=== PATIENT | female | born 1955 | race Caucasian/White ===

== ENCOUNTER 2017-02-10 17:19 | Emergency (ER) | payer BC, OTHER ==
[~2017-02-10] VITALS: Ht 147.3 cm; Wt 64.0 kg
[~2017-02-10 17:19] MED LIST: METO-336 PO; SIMV80TA PO
[2017-02-10 18:11] VITALS: Ht 147.3 cm; Wt 64.0 kg
[2017-02-10] MEDS ORDERED: morphine 4 MG/ML VIAL IV STA (20:30)
[2017-02-10] MEDS ORDERED: ONDANSETRON 4 MG INJ IV STA (20:30)
--- NOTE | 2017-02-10 20:37 | ERA ---
ER Documentation Chief Complaint Date/Time DATE: 02/10/17 TIME: 20:32 Chief Complaint LEFT SIDED FLANK & BILATERAL OVARY PAIN, DENIES DYSURIA/HEMATURIA HPI 61-year-old female presenting with the chief complaints of bilateral flank pain 2 days. Patient with PCP who suggested she come to the ER for further evaluation. Patient has a history of hyperlipidemia, hypertension, anxiety and palpitations. Denies headache, chest pain, shortness of breath, nausea, vomiting, dysuria, hematuria, vaginal discharge. Patient has not taken any medications to relieve the symptoms. Patient had similar symptoms 1 month ago that was diagnosed as UTI and relieved with 10 days of ciprofloxacin. ROS All systems reviewed and are negative except as per history of present illness. Medications Home Meds Active Scripts Phenazopyridine Hcl* (Pyridium*) 100 Mg Tab, 100 MG PO TID Y for URINARY PAIN, # 8 TAB Prov:CLAUDIO WRIGHT PA-C 02/10/17 Nitrofurantoin Monohyd Macrocr* (Macrobid*) 100 Mg Capsr, 100 MG PO BID for 14 Days, CAP Prov:CLAUDIO WRIGHT PA-C 02/10/17 Reported Medications Metoprolol Succinate* (Toprol XL*) 100 Mg Tab.sr.24h, 100 MG PO BID 01/21/11 Simvastatin* (Zocor*) 80 Mg Tablet, 80 MG PO QHS 01/21/11 Allergies Allergies: Coded Allergies: No Known Allergies (Verified Allergy, 01/21/11) PMhx/Soc History of Surgery: No Anesthesia Reaction: No Hx Neurological Disorder: No Hx Respiratory Disorders: No Hx Cardiac Disorders: Yes (HTN) Hx Psychiatric Problems: No Hx Miscellaneous Medical Probl: Yes (Dyslipidemia) Hx Alcohol Use: No Hx Substance Use: No Hx Tobacco Use: No Smoking Status: Never smoker Physical Exam Vitals Vital Signs Date Time Temp Pulse Resp B/P Pulse Ox O2 Delivery O2 Flow Rate FiO2 02/10/17 18:11 99.4 60 18 188/90 98 Physical Exam Const: Overweight 61-year-old female sitting in the bed and no acute distress. Abd: Mild suprapubic tenderness. Soft, non tender, non distended. No guarding, masses. Normal bowel sounds. No McBurney's point tenderness. Back: No midline, flank or CVA tenderness Head: Normocephalic, Atraumatic. Eyes: Non-injected; No scleral erythema, discharge or foreign body. Ears: Normal External Ears, EACs clear, TM normal bilaterally without erythema. Nose: Normal external nose; no discharge, septal deviation, or sinus tenderness. Neck: No cervical lymphadenopathy, masses or goiter palpated. Trachea midline. Supple ~ No meningismus. Pulm: No dyspnea, stridor, tripoding or drooling. Good air movement. Clear to auscultation bilaterally. Cardio: Regular rate and rhythm; No murmurs, gallops or rubs auscultated. No JVD grossly observed. Radial and posterior tibial pulses 2+ bilaterally. Capillary refill less than 2 seconds. MS: Normal motor strength, normal tone. Skin: No petechiae or rashes. No ulcer, induration, jaundice. Good turgor. . Ext: No cyanosis, edema or palpable cord. Normal movement of all extremities grossly observed. Neur: Awake, alert and oriented x3. Neurovascularly intact bilaterally. Psych: Normal Mood and Affect. Result Diagram: 02/10/17205702/10/172057 Results 24 hrs Laboratory Tests Test 02/10/17 20:40 02/10/17 20:58 Urine Color STRAW Urine Clarity CLEAR Urine pH 6.0 Urine Specific Robert 1.009 Urine Ketones NEGATIVEmg/dL Urine Nitrite NEGATIVEmg/dL Urine Bilirubin NEGATIVEmg/dL Urine Urobilinogen NEGATIVEmg/dL Urine Leukocyte Esterase 2+Estrella/ul Urine Microscopic RBC 1/HPF Urine Microscopic WBC 6/HPF Urine Hemoglobin 1+mg/dL Urine Glucose NEGATIVEmg/dL Urine Total Protein NEGATIVEmg/dl White Blood Count 7.010^3/ul Red Blood Count 4.8110^6/ul Hemoglobin 14.3g/dl Hematocrit 43.4% Mean Corpuscular Volume 90.2fl Mean Corpuscular Hemoglobin 29.7pg Mean Corpuscular Hemoglobin Concent 32.9g/dl Red Cell Distribution Width 12.4% Platelet Count 93007^3/UL Mean Platelet Volume 11.0fl Neutrophils % 43.2% Lymphocytes % 47.6% Monocytes % 6.1% Eosinophils % 2.4% Basophils % 0.6% Nucleated Red Blood Cells % 0.0/100WBC Neutrophils # 3.010^3/ul Lymphocytes # 3.310^3/ul Monocytes # 0.410^3/ul Eosinophils # 0.210^3/ul Basophils # 0.010^3/ul Nucleated Red Blood Cells # 0.010^3/ul Prothrombin Time 13.8Sec Prothrombin Time Ratio 1.1 INR International Normalized Ratio 1.06 Activated Partial Thromboplast Time 29.7Sec Sodium Level 144mmol/L Potassium Level 4.0mmol/L Chloride Level 107mmol/L Carbon Dioxide Level 26mmol/L Anion Gap 15 Blood Urea Nitrogen 15mg/dl Creatinine 0.74mg/dl Glucose Level 94mg/dl Calcium Level 9.4mg/dl Total Bilirubin 0.6mg/dl Direct Bilirubin 0.00mg/dl Indirect Bilirubin 0.6mg/dl Aspartate Amino Transf (AST/SGOT) 29IU/L Alanine Aminotransferase (ALT/SGPT) 43IU/L Alkaline Phosphatase 72IU/L Total Protein 8.4g/dl Albumin 4.6g/dl Globulin 3.80g/dl Albumin/Globulin Ratio 1.21 Lipase 86U/L Current Medications Medications (Trade) Dose Ordered Sig/Bambi Route PRN Reason Start Time Stop Time Status Last Admin Dose Admin Morphine Sulfate (morphine) 4 mg ONCE STAT IV 02/10/17 20:30 02/10/17 20:32 DC Ondansetron HCl (Zofran Inj) 4 mg ONCE STAT IV 02/10/17 20:30 02/10/17 20:32 DC Procedures/MDM 61-year-old female presenting with a chief complaints of bilateral flank pain and showing mild suprapubic tenderness on physical examination with no abdominal or CVA tenderness. Patient was diagnosed with urinary tract infection and treated with Cipro 10 days 1 month ago. Patient denies dysuria. CT read by the radiologist is unremarkable. Urine negative. Urinalysis reveals 2+ loops, it was white blood cells. Reviewed the case with my attending Dr. Sanchez who states that since there is recent antibiotic use the most appropriate treatment is with Macrobid 14 days. Patient will be prescribed Pyridium for discomfort. I have little suspicion for pyelonephritis , acute abdomen, PID or other acute pathologies. Most likely diagnosis is lower urinary tract infection with unspecified site. I have spoke with the patient regarding their condition and future management. They have verbally responded that they understand their status and treatment plan. The patients vitals are stable, and their current condition is appropriate for discharge. The patient will be given discharge instructions with return precautions. Departure Diagnosis: Primary Impression: UTI (urinary tract infection) Qualified Code: N39.0 - Urinary tract infection with hematuria, site unspecified Condition: Stable Additional Instructions: Follow up with your PCP within the next 1-3 days for a more thorough evaluation and a possible referral to a specialist. Return the the emergency department immediately if symptoms worsen or change. If you have any questions regarding medications, ask your pharmacist or us before you leave. If any adverse reactions occur while taking your medications, discontinue the treatment and return to the emergency department immediately. Take your medications as directed, and complete the entire course of treatment. CLAUDIO WRIGHT PA-C Feb 10, 2017 20:36 CLAUDIO WRIGHT PA-C Feb 10, 2017 20:36
[2017-02-10 20:59] LABS: ADD UMIC YES; UR ASCORBIC ACID NEGATIVE (NEGATIVE); UR BILIRUBIN (Dip) NEGATIVE (NEGATIVE); UR BLOOD (Dip) 1+ mg/dL (NEGATIVE); UR CLARITY CLEAR (CLEAR); UR COLOR STRAW (YELLOW); UR GLUCOSE (Dip) NEGATIVE (NEGATIVE); UR KETONES (Dip) NEGATIVE (NEGATIVE); UR LEUKOCYTE ESTERASE (Dip) 2+ Leu/ul (NEGATIVE); UR NITRITE (Dip) NEGATIVE (NEGATIVE); UR RBC 1 /HPF (0-5); UR SPECIFIC GRAVITY (Dip) 1.009 (1.003-1.030); UR TOTAL PROTEIN (Dip) NEGATIVE (NEGATIVE); UR UROBILINOGEN (Dip) NEGATIVE (NEGATIVE)
[2017-02-10 21:23] LABS: BASOPHILS % 0.6 % (0.0-2.0); EOSINOPHILS # 0.2 10^3/ul (0.0-0.5); EOSINOPHILS % 2.4 % (0.0-7.0); HEMATOCRIT 43.4 % (37.0-47.0); HEMOGLOBIN 14.3 g/dl (12.0-16.0); LYMPHOCYTES # 3.3 10^3/ul (0.8-2.9); LYMPHOCYTES % 47.6 % (15.0-51.0); MEAN CORPUSCULAR HEMOGLOBIN 29.7 pg (29.0-33.0); MEAN CORPUSCULAR HGB CONC 32.9 g/dl (32.0-37.0); MEAN CORPUSCULAR VOLUME 90.2 fl (82.0-101.0); MONOCYTE # 0.4 10^3/ul (0.3-0.9); MONOCYTES % 6.1 % (0.0-11.0); NEUTROPHILS % 43.2 % (39.0-77.0); PLATELET COUNT 241 10^3/UL (140-415); RED BLOOD COUNT 4.81 10^6/ul (4.20-5.40); RED CELL DISTRIBUTION WIDTH 12.4 % (11.5-14.5)
[2017-02-10 21:36] LABS: INR 1.06; PROTIME 13.8 Sec (12.2-14.2); PT RATIO 1.1
[2017-02-10 21:37] LABS: PARTIAL THROMBOPLASTIN TIME 29.7 Sec (25.0-35.0)
[2017-02-10 21:41] LABS: ALBUMIN 4.6 g/dl (3.3-4.9); ALBUMIN/GLOBULIN RATIO 1.21; BILIRUBIN,INDIRECT 0.6 mg/dl (0-1.1); BILIRUBIN,TOTAL 0.6 mg/dl (0.2-1.3); CALCIUM 9.4 mg/dl (8.4-10.2); CREATININE 0.74 mg/dl (0.44-1.00); TOTAL PROTEIN 8.4 g/dl (6.1-8.1)
--- NOTE | 2017-02-10 22:10 | RADRPT ---
PROCEDURE: CT Abdomen and Pelvis without contrast. CLINICAL INDICATION: Abdominal pelvic pain. TECHNIQUE: CT scan of the abdomen and pelvis without contrast was performed on a multidetector hig h-resolution CT scanner. The patient was scanned without intravenous contrast. Coronal and sagittal reformatted images were obtained from the axial source images. Images were reviewed on a high-resol [employer] PACS workstation. The total exam CTDI equals 8.74 mGy and the total exam DLP equals 459.05 mGy -cm. One or more of the following dose reduction techniques were used: - Automated exposure control. - Adjustment of the mA and/or kV according to patient size. - Use of iterative reconstruction technique. COMPARISON: None. FINDINGS: CT abdomen: The lung bases are remarkable for minor dependent basilar subsegmental atelectasis. The heart size is normal, without pericardial thickening or effusion. There is a small retrocardiac hiatal hernia. The liver is normal in size and density without focal mass or intrahepatic biliary dilatation. The spleen is normal in size and homogeneous in density. The stomach is partially collapsed, but is gr ossly unremarkable. The pancreas as visualized is normal. The gallbladder and biliary tree are unr emarkable and there is no evidence for biliary dilatation. The adrenal glands are symmetric and nor mal. The kidneys are symmetrically unremarkable as well. No renal calculus or obstructive uropathy or mass lesion is seen. The aorta is of normal caliber. Aortic vascular calcifications are present. There is no retroperit goncalves lymphadenopathy. The malka hepatis region is clear. The bowel and mesentery, as visualized, are equally unremarkable. CT pelvis: The small bowel loops situated within the pelvis are unremarkable. The appendix is visualized and is normal. The pelvic organs are remarkable for an enlarged lobulated uterus. The pelvic sidewalls a nd inguinal regions are clear. The sigmoid colon and rectum are unremarkable. No mass or adenopath y is seen. No free fluid is present. No acute inflammation is identified at this time. The surrounding osseous structures are remarkable for mild degenerative enthesopathy of the spine. No osteolytic or osteoblastic lesion is detected. IMPRESSION: 1. Unremarkable CT scan of the abdomen and pelvis. 2. No mass, lymphadenopathy, or focal acute inflammatory process 3. Scattered benign chronic senescent changes. RPTAT: HMJB .Freddy Grande MD, MD Date Time Electronically viewed and signed by .Freddy Grande MD, MD on 02/10/2017 22:10 .B/
[2017-02-10] MEDS ORDERED: NITR-58 PO (22:20)
[2017-02-10] MEDS ORDERED: PHEN-537 PO (22:20)
[2017-02-10 22:30] VITALS: BP 178/94; RESP 20
== END 2017-02-10 22:30 | disposition home or self-care (01) ==
LOC: FTE 17:19
DX: N39.0 Urinary tract infection, site not specified (principal); I10 Essential (primary) hypertension
CPT/HCPCS: 36415; 74176; 80053; 81001; 83690; 85025; 85610; 85730; 87086

== ENCOUNTER 2017-11-14 16:26 | Observation (INO) | END 2017-11-16 19:11 | disposition home health service (06) ==

== ENCOUNTER 2018-10-14 01:38 | Inpatient (IN) | payer OTHER ==
[~2018-10-14] VITALS: Ht 162.6 cm; Wt 57.2 kg
[2018-10-14] VITALS (7 sets, daily range): BP systolic 141–166; BP diastolic 71–88; PULSE 61–98; RESP 18–22; Ht 162.6 cm; Wt 57.2 kg
[~2018-10-14 01:38] MED LIST changes: +ALEN70TA5 PO; +AMIO200T4 PO; +APIX5TAB PO; +ATOR20TA38 PO; +ERGO2000 PO; +LORA0.5T PO; +LOSA50TA14 PO; -METO-336 PO; +PARO-2 PO; -SIMV80TA PO
[2018-10-14] MEDS ORDERED: HYDR12.58 PO (04:32)
[2018-10-14] MEDS ORDERED: LEVO50TA7 PO (04:32)
--- NOTE | 2018-10-14 04:56 | ERD ---
ER Documentation Chief Complaint Chief Complaint HTN X'S 1 DAY HPI Very pleasant 63-year-old female history of atrial fibrillation status post ablation therapy who presents to the emergency room with elevated blood pressure. The patient states that she went to dinner and had some steak and may be some salty food. She got home and felt that her blood pressure was high. She started to check her blood pressure multiple times and to continue to elevate up into the 200s. Patient denied any headache. She states that she had a cold sensation over the front of her chest but this was transient. She denied any chest pressure, pleuritic pain or migratory pain. The patient states that she is feeling somewhat better currently. Patient denies any fevers or chills ROS All systems reviewed and are negative except as per history of present illness. Medications Home Meds Active Scripts Amiodarone Hcl* (Amiodarone Hcl*) 200 Mg Tablet, 200 MG PO DAILY for 30 Days, #30 TAB 2 Refills Prov:WINDY RAMOS MD 11/16/17 Reported Medications Levothyroxine Sodium* (Levothyroxine Sodium*) 50 Mcg Tablet, 50 MCG PO QAM 10/14/18 Hydrochlorothiazide* (Hydrochlorothiazide*) 12.5 Mg Tablet, 121.5 MG PO DAILY for 30 Days, #30 10/14/18 Ergocalciferol (Vitamin D2) (VITAMIN D2) 2,000 Unit Tablet, 2000 UNIT PO DAILY, TAB 11/14/17 Atorvastatin Calcium* (Atorvastatin Calcium*) 20 Mg Tablet, 20 MG PO QHS, #30 TAB 11/14/17 Losartan Potassium* (Losartan Potassium*) 50 Mg Tablet, 50 MG PO DAILY, TAB 11/14/17 Alendronate Sodium* (Fosamax*) 70 Mg Tablet, 70 MG PO EVERY WEDNESDAY, #4 TAB 11/14/17 Apixaban* (Eliquis*) 5 Mg Tablet, 5 MG PO BID, TAB 11/14/17 Discontinued Reported Medications Paroxetine Hcl* (Paxil*) 20 Mg Tablet, 20 MG PO DAILY, TAB 11/14/17 Lorazepam* (Lorazepam*) 0.5 Mg Tablet, 0.5 MG PO BID PRN for ANXIETY, TAB 11/14/17 Allergies Allergies: Coded Allergies: No Known Allergies (Unverified Allergy, Unknown, 10/14/18) PMhx/Soc History of Surgery: No Anesthesia Reaction: No Hx Neurological Disorder: No Hx Respiratory Disorders: No Hx Cardiac Disorders: Yes (htn, afib) Hx Psychiatric Problems: Yes (Anxiety) Hx Miscellaneous Medical Probl: Yes (Hyperlipidemia) Hx Alcohol Use: No Hx Substance Use: No Hx Tobacco Use: No Smoking Status: Never smoker FmHx Family History: No diabetes Physical Exam Vitals Vital Signs Date Temp Pulse Resp B/P (MAP) Pulse Ox O2 O2 Flow FiO2 Time Delivery Rate 10/14/18 64 16 174/88 98 Room Air 04:40 (116) 10/14/18 66 16 196/86 98 Room Air 03:38 (122) 10/14/18 Nasal 2 03:23 Cannula 10/14/18 98.3 76 18 236/104 99 01:42 (148) Physical Exam General: Well developed, well nourished, no acute distress Head: Normocephalic, atraumatic. Eyes: Pupils equally reactive, EOM intact ENT: Moist mucous membranes Neck: Supple, no lymphadenopathy Respiratory: Lungs clear bilaterally, no distress Cardiovascular: RRR, no murmurs, rubs, or gallops Abdominal: Soft, non-tender, non-distended, no peritoneal signs : Deferred MSK: No edema, no unilateral swelling, 5/5 strength Neurologic: Alert and oriented, moving all extremities, normal speech, no focal weakness, no cerebellar signs Skin: No rash Psych: Normal mood Result Diagram: 10/14/18 0321 10/14/18 0321 Results 24 hrs Laboratory Tests Test 10/14/18 03:21 White Blood Count 9.3 10^3/ul Red Blood Count 4.58 10^6/ul Hemoglobin 13.4 g/dl Hematocrit 41.5 % Mean Corpuscular Volume 90.6 fl Mean Corpuscular Hemoglobin 29.3 pg Mean Corpuscular Hemoglobin Concent 32.3 g/dl Red Cell Distribution Width 11.9 % Platelet Count 257 10^3/UL Mean Platelet Volume 9.9 fl Immature Granulocytes % 0.300 % Neutrophils % 83.2 % Lymphocytes % 12.3 % Monocytes % 3.6 % Eosinophils % 0.3 % Basophils % 0.3 % Nucleated Red Blood Cells % 0.0 /100WBC Immature Granulocytes # 0.030 10^3/ul Neutrophils # 7.7 10^3/ul Lymphocytes # 1.2 10^3/ul Monocytes # 0.3 10^3/ul Eosinophils # 0.0 10^3/ul Basophils # 0.0 10^3/ul Nucleated Red Blood Cells # 0.0 10^3/ul Prothrombin Time 15.1 Sec Prothrombin Time Ratio 1.2 INR International Normalized Ratio 1.18 Activated Partial Thromboplast Time 37.7 Sec Sodium Level 139 mmol/L Potassium Level 3.8 mmol/L Chloride Level 101 mmol/L Carbon Dioxide Level 28 mmol/L Anion Gap 10 Blood Urea Nitrogen 19 mg/dl Creatinine 0.73 mg/dl Est Glomerular Filtrat Rate mL/min > 60 mL/min Glucose Level 123 mg/dl Calcium Level 9.4 mg/dl Troponin I 0.013 ng/ml Procedures/MDM EKG, MONITORS, & DIAGNOSTIC IMAGING: EKG: I reviewed and interpreted a 12-lead EKG. Rhythm: Normal sinus rhythm ST Changes: No contiguous ST segment elevations T waves: No contiguous T wave inversions Impression: No evidence of acute cardiac ischemia Repeat EKG: EKG: I reviewed and interpreted a 12-lead EKG. Rhythm: Normal sinus rhythm ST Changes: No contiguous ST segment elevations T waves: No contiguous T wave inversions Impression: No evidence of acute cardiac ischemia Chest x-ray: I reviewed and interpreted a 1 view of the chest Mediastinum: No enlargement Cardiac silhouette: No cardiomegaly Airspace: Clear lung price bilaterally without evidence of pneumothorax Bones: No evidence of fracture PROCEDURES: None LAB INTERPRETATION: * Initial troponin negative but indeterminate MEDICAL DECISION MAKING: The patient's history, physical exam and clinical presentation is consistent with asymptomatic hypertensive urgency. The patient described a cold sensation over her chest that seems very atypical and unlikely related to acute coronary syndrome. However given the patient's elevated blood pressure I do believe EKG and troponin would be appropriate. No signs of dissection. Based on the patient's clinical exam and history and risk factors, I have a much lower clinical concern for pulmonary embolism, acute aortic dissection, pneumothorax, pneumonia, cardiac tamponade HEART Score: 2 MACE Rate: <1.7% Shared Decision Making: We had a conversation regarding risk stratification, MACE rate, and the risks, benefits, alternatives of disposition planning options. Disposition planning: Serial enzymes and discharge ER COURSE: * Single trop negative but indeterminate so repeat pending around 6 am * Patient will be endorsed to oncoming provider. If repeat troponin is negative the patient can be safely discharged. * Blood pressure is dramatically improved with time. No significant intervention provided. CONSULTATION: None DISPOSITION PLAN: Pending repeat troponin but anticipate discharge Departure Diagnosis: Primary Impression: Hypertensive urgency Condition: Stable TAYLOR WARREN MD Oct 14, 2018 04:56
[2018-10-14] MEDS ORDERED: ASPIRIN 325 MG TAB PO ONE (07:00)
[2018-10-14] MEDS ORDERED: ACETAMINOPHEN 325 MG TAB PO PRN ×3 (09:00→10:00)
[2018-10-14] MEDS ORDERED: ONDANSETRON 4 MG INJ IV PRN ×3 (09:00→10:00)
[2018-10-14] MEDS ORDERED: MAGNESIUM HYDROXIDE 30ML CUP PO PRN (10:00)
[2018-10-14] MEDS ORDERED: HYDROCODONE/APAP (5/325) TAB PO PRN (10:00)
[2018-10-14] MEDS ORDERED: ACETAMINOPHEN 650 MG SUPP PR PRN (10:00)
[2018-10-14] MEDS ORDERED: morphine 2 MG INJ IV PRN (10:00)
[2018-10-14] MEDS ORDERED: NITROGLYCERIN (SL) 0.4 MG TAB SL PRN (10:00)
[2018-10-14] MEDS ORDERED: DOCUSATE SODIUM 100 MG CAP PO PRN (10:00)
[2018-10-14] MEDS ORDERED: BISACODYL 10 MG SUPP PR PRN (10:00)
[2018-10-14] MEDS ORDERED: NACL 0.9% 3 ML SYG IV SCH (10:00)
[2018-10-14] MEDS: FAMOTIDINE 20 MG INJ IV SCH ×2 (10:57→20:54)
[2018-10-14] MEDS: ENOXAPARIN 60 MG/0.6 ML SYG SC SCH ×2 (10:57→21:00)
[2018-10-14] MEDS ORDERED: ENOXAPARIN 100 MG/ML SYG SC SCH ×2 (11:00→21:00)
[2018-10-14] MEDS ORDERED: hydrALAzine (1 MG/ML) IV SYG IV PRN (13:30)
[2018-10-14] MEDS ORDERED: hydrALAzine 20 MG INJ IV PRN (14:00)
--- NOTE | 2018-10-14 16:02 | HP ---
Date/Time of Note Date/Time of Note DATE: 10/14/18 TIME: 15:56 Assessment/Plan VTE Prophylaxis Pharmacological prophylaxis: LMWH Lines/Catheters IV [facility]from [facility] Saline Lock Assessment/Plan Hospital Course Assessment and plan 1. Chest pain. Patient noted with elevated troponin. Start on therapeutic dose of Lovenox. Percussion Welding Machine Operator consulted. Start on high-dose statin. Continue on ASA. 2. Hypertension. Will adjust antihypertensive medications. Optimize for better BP control. 3. Hyperlipidemia. Follow-up on CHD panel. Continue on statin medication. 4. History of hypothyroidism. Continue on levothyroxine. 5. History of osteoarthritis. Patient resumed on Fosamax Discussed POC with Dr. Loyola Result Diagram: 10/14/18 0321 10/14/18 0321 Results 24hrs Laboratory Tests Test 10/14/18 03:21 10/14/18 05:56 10/14/18 10:46 White Blood Count 9.3 Red Blood Count 4.58 Hemoglobin 13.4 Hematocrit 41.5 Mean Corpuscular Volume 90.6 Mean Corpuscular Hemoglobin 29.3 Mean Corpuscular Hemoglobin Concent 32.3 Red Cell Distribution Width 11.9 Platelet Count 257 Mean Platelet Volume 9.9 Immature Granulocytes % 0.300 Neutrophils % 83.2 H Lymphocytes % 12.3 L Monocytes % 3.6 Eosinophils % 0.3 Basophils % 0.3 Nucleated Red Blood Cells % 0.0 Immature Granulocytes # 0.030 Neutrophils # 7.7 H Lymphocytes # 1.2 Monocytes # 0.3 Eosinophils # 0.0 Basophils # 0.0 Nucleated Red Blood Cells # 0.0 Prothrombin Time 15.1 H Prothrombin Time Ratio 1.2 INR International Normalized Ratio 1.18 Activated Partial Thromboplast Time 37.7 H Sodium Level 139 Potassium Level 3.8 Chloride Level 101 Carbon Dioxide Level 28 Anion Gap 10 Blood Urea Nitrogen 19 Creatinine 0.73 Est Glomerular Filtrat Rate mL/min > 60 Glucose Level 123 Calcium Level 9.4 Troponin I 0.013 0.147 *H 0.210 *H Creatine Kinase 101 Creatine Kinase Index 4.9 Creatinine Kinase MB (Mass) 4.93 H HPI/ROS Admit Date/Time Admit Date/Time Oct 14, 2018 at 08:54 Hx of Present Illness This is a 63-year-old female with reported past medical history of atrial fibrillation status post ablation, hyperlipidemia, hypertension, coronary artery disease, who came to the hospital due to reports of elevated blood pressure. Patient reported that last night her blood pressure systolically was in the 190s. She does report compliance with her medication. She then reported progressive pain that started from her chest that went to her left shoulder that was pressure-like in nature. She reported having more fatigue with walking. As such she went to the hospital for further evaluation. She did have initial troponin drawn which was 0.013. It did elevate to 0.147 and then to 0.210. She was provided with Lovenox 1 mg/kg. Chest x-ray done showed no acute cardia pulmonary process. She reports being in her normal state of health prior to these incidents. Blood pressure on arrival was seen to be as high as 236/104. Percussion Welding Machine Operator was notified. Currently during interview she is alert oriented. She denies any chest pain at present. We will evaluate her for the aformentiond issues. ROS 12 point review of systems obtained entirely negative except as mentioned in the history of present illness PMH/Family/Social Past Medical History Medical/surgical history 1. A. fib status post ablation 2. Hyperlipidemia 3 hypertension 4. Hypothyroid Medications Current Medications IV Flush (NS 3 ml) 3 ml PER PROTOCOL IV ; Start 10/14/18 at 10:00 Ondansetron HCl (Zofran Inj) 4 mg Q6H PRN IV NAUSEA/VOMITING; Start 10/14/18 at 10:00 Acetaminophen (Tylenol Tab) 650 mg Q6H PRN PO .PAIN 1-3 OR TEMP; Start 10/14/18 at 10:00 Acetaminophen (Tylenol Supp) 650 mg Q6H PRN [place] .PAIN 1-3 OR TEMP; Start 10/14/18 at 10:00 Acetaminophen/ Hydrocodone Bitart ([place] (5/325)) 1 tab Q6H PRN PO .MOD PAIN 4- 6; Start 10/14/18 at 10:00 Morphine Sulfate (morphine) 2 mg Q4H PRN IV .SEVERE PAIN 7-10; Start 10/14/18 at 10:00 Docusate Sodium (Colace) 100 mg Q12H PRN PO .CONSTIPATION; Start 10/14/18 at 10:00 Magnesium Hydroxide (Milk Of Mag) 30 ml DAILY PRN PO .CONSTIPATION; Start 10/14/18 at 10:00 Bisacodyl (Dulcolax Supp) 10 mg DAILY PRN [place] .CONSTIPATION; Start 10/14/18 at 10:00 Famotidine (Pepcid Iv) 20 mg BID IV Last administered on 10/14/18at 10:57; Admin Dose 20 MG; Start 10/14/18 at 10:30 Aspirin (Aspirin) 81 mg DAILY PO ; Start 10/16/18 at 09:00 Nitroglycerin (Nitroglycerin (Sl Tab) 0.4 Mg) 1 tab Q5M PRN SL CHEST PAIN; Start 10/14/18 at 10:00 Enoxaparin Sodium (Lovenox) 60 mg Q12 SC Last administered on 10/14/18at 10:57; Admin Dose 60 MG; Start 10/14/18 at 11:00 Hydralazine HCl (Apresoline) 10 mg Q4H PRN IV SBP > 160; Start 10/14/18 at 14:00 Amiodarone HCl (Cordarone) 200 mg DAILY PO ; Start 10/15/18 at 09:00 Atorvastatin Calcium (Lipitor) 80 mg QHS PO ; Start 10/14/18 at 21:00 Hydrochlorothiazide (Hydrochlorothiazide) 121.5 mg DAILY PO ; Start 10/15/18 at 09:00; Status UNV Levothyroxine Sodium (Synthroid) 50 mcg QAM PO ; Start 10/15/18 at 09:00 Losartan Potassium (Cozaar) 50 mg DAILY PO ; Start 10/15/18 at 09:00 Coded Allergies: No Known Allergies (Unverified Allergy, Unknown, 10/14/18) Family History Significant Family History: heart disease Social History Alcohol Use: none Smoking Status: Never smoker Drug Use: none Exam/Review of Systems Vital Signs Vitals Vital Signs Date Temp Pulse Resp B/P (MAP) Pulse Ox O2 O2 Flow FiO2 Time Delivery Rate 10/14/18 98.0 98 165/74 100 Room Air 13:00 (104) 10/14/18 14 11:35 10/14/18 2 03:23 Exam Constitutional: alert, oriented Psych: nl mood/affect Head: normocephalic Eyes: nl conjunctiva Neck: supple, non-tender Respiratory: clear to auscultation Cardiovascular: other (regular rate ) Gastrointestinal: soft, non-tender Musculoskeletal: nl extremities to inspection Neurological: HUMAN RESOURCES PROFESSIONAL II-XII intact, nl mental status, nl speech Skin: nl ODALIS Longoria NP Oct 14, 2018 16:02
--- NOTE | 2018-10-14 16:28 | RADRPT ---
Echocardiogram Report [facility] [id number] : 1955 (63y 6m)Study Date: 10/14/2018 1:03:01 PM Gender: FAccession #: [id number] Tech: JERICA Location: [facility] Ref.Physician: ODALIS BELLE Height(Cm): BSA: Weight(Kg): Quality: GoodOrder Physician: ODALIS BELLE Account #: Procedures: Echocardiographic Report: Transthoracic echocardiogram with complete 2D, M-Mode, and doppler examination. Indications: NSTEMI. Measurements: 2D/M Mode Doppler Measurement Value Normal Range Measurement Value Normal Range LVIDd 2D 4.7 [ 3.8 - 5.2 ] cm AV Mean Ever 1.0 [ 70.0 - 90.0 ] cm/sec LVIDs 2D 3.2 [ 2.2 - 3.5 ] cm AV Mean PG 4.0 [ 2.0 - 4.0 ] mmHg LVPWd 2D 1.1 [ 0.6 - 0.9 ] cm AV Peak Ever 1.4 [ 100.0 - 170.0 ] cm/sec IVSd 2D 1.1 [ 0.6 - 0.9 ] cm AV Peak PG 8.0 [ 2.0 - 9.0 ] mmHg EDV 2D 103.0 [ 46.0 - 106.0 ] ml AV VTI 32.5 cm ESV 2D 41.3 [ 14.0 - 42.0 ] ml LVOT Peak Ever 1.1 [ 70.0 - 110.0 ] cm/sec EF 2D 59.9 [ 54.0 - 74.0 ] percent LVOT Peak PG 5.0 [ 2.0 - 6.0 ] mmHg LVOT Diam 1.9 [ 2.1 - 2.5 ] cm MV E Peak Ever 0.7 [ 60.0 - 130.0 ] cm/sec MV A Peak Ever 0.8 [ 100.0 - 120.0 ] cm/sec MV E/A 0.8 [ 0.8 - 1.5 ] ratio MV Decel Time 299 [ 104 - 258 ] msec Lat E` Ever 0.1 [ 10.0 - 15.0 ] cm/sec Lateral E/E` 9.3 [ 1.0 - 2.0 ] ratio Med E` Ever 0.1 cm/sec MV E/A 0.8 [ 0.8 - 1.5 ] ratio TR Peak Ever 2.8 [ 100.0 - 280.0 ] cm/sec TR Peak PG 32.0 mmHg PV Peak Ever 0.7 [ 40.0 - 80.0 ] cm/sec PV Peak PG 2.0 mmHg Findings: Left Ventricle: Normal left ventricular systolic function. Normal left ventricular cavity size. Normal left ventricular wall thickness. Ejection fraction is visually estimated at 60 %. Tissue Doppler/Mitral Doppler indices are consistent with impaired relaxation (Stage I diastolic dysfunction). Right Ventricle: Normal right ventricular size. Normal right ventricular systolic function. Left Atrium: The left atrium is normal in size. Right Atrium: The right atrium is normal in size. Mitral Valve: Normal appearance of the mitral valve. Moderate mitral valve regurgitation. Aortic Valve: Normal appearance of the aortic valve. No significant aortic stenosis with trivial insufficiency. Tricuspid Valve: Normal appearance of the tricuspid valve. The estimated Peak RVSP is 35 mmHg. There is mild tricuspid regurgitation. Pulmonic Valve: Pulmonic valve not well visualized. No evidence of pulmonic regurgitation. Pericardium: Normal pericardium with no significant pericardial effusion. Aorta: Normal aortic root. IVC: Normal size and normal respiratory collapse consistent with normal right atrial pressure. Conclusions: Normal left ventricular systolic function. Normal left ventricular cavity size. Normal left ventricular wall thickness. Ejection fraction is visually estimated at 60 %. Tissue Doppler/Mitral Doppler indices are consistent with impaired relaxation (Stage I diastolic dysfunction). Normal appearance of the mitral valve. Moderate mitral valve regurgitation. Normal appearance of the aortic valve. No significant aortic stenosis with trivial insufficiency. Electronically Signed By: Laron Edwards 2018-10-14 16:27:23 PDT
[2018-10-14] MEDS: LOSARTAN 50 MG TAB PO SCH (16:39)
[2018-10-14] MEDS: AMIODARONE 200 MG TAB PO SCH (16:39)
--- NOTE | 2018-10-14 18:12 | CONS ---
Assessment/Plan Assessment/Plan Hospital Course (Demo Recall) Hypertensive emergency - transient severe elevation in BP with neurologic and cardiac symptoms. Slight elevation of cardiac enzymes nonspecific in this setting Echo with normal EF BP better controlled nuclear 1 yr ago showed small fixed defect will monitor overnight if BP remains controlled and chest pain free possible discharge in AM afib - recent ablation continue anticoagulation and Amiodarone Consultation Date/Type/Reason Admit Date/Time Oct 14, 2018 at 08:54 Type of Consult Cardiology Date/Time of Note DATE: 10/14/18 TIME: 18:07 Hx of Present Illness Well known to me underwent ablation 6 weeks ago for afib. Last night felt mild chest pressure and headache note BP to be in 200s systolic has had this once before. Now feels well no pain. Trop slightly elevated Constitutional: no complaints Respiratory: no complaints Cardiovascular: no complaints Musculoskeletal: no complaints Past Medical History Home Meds Active Scripts Amiodarone Hcl* (Amiodarone Hcl*) 200 Mg Tablet, 200 MG PO DAILY for 30 Days, #30 TAB 2 Refills Prov:WINDY RAMOS MD 11/16/17 Reported Medications Levothyroxine Sodium* (Levothyroxine Sodium*) 50 Mcg Tablet, 50 MCG PO QAM 10/14/18 Hydrochlorothiazide* (Hydrochlorothiazide*) 12.5 Mg Tablet, 121.5 MG PO DAILY for 30 Days, #30 10/14/18 Ergocalciferol (Vitamin D2) (VITAMIN D2) 2,000 Unit Tablet, 2000 UNIT PO DAILY, TAB 11/14/17 Atorvastatin Calcium* (Atorvastatin Calcium*) 20 Mg Tablet, 20 MG PO QHS, #30 TAB 11/14/17 Losartan Potassium* (Losartan Potassium*) 50 Mg Tablet, 50 MG PO DAILY, TAB 11/14/17 Alendronate Sodium* (Fosamax*) 70 Mg Tablet, 70 MG PO EVERY WEDNESDAY, #4 TAB 11/14/17 Apixaban* (Eliquis*) 5 Mg Tablet, 5 MG PO BID, TAB 11/14/17 Discontinued Reported Medications Paroxetine Hcl* (Paxil*) 20 Mg Tablet, 20 MG PO DAILY, TAB 11/14/17 Lorazepam* (Lorazepam*) 0.5 Mg Tablet, 0.5 MG PO BID PRN for ANXIETY, TAB 11/14/17 Medications Current Medications IV Flush (NS 3 ml) 3 ml PER PROTOCOL IV ; Start 6/21/19 at 10:00 Ondansetron HCl (Zofran Inj) 4 mg Q6H PRN IV NAUSEA/VOMITING; Start 10/14/18 at 10:00 Acetaminophen (Tylenol Tab) 650 mg Q6H PRN PO .PAIN 1-3 OR TEMP; Start 10/14/18 at 10:00 Acetaminophen (Tylenol Supp) 650 mg Q6H PRN OR .PAIN 1-3 OR TEMP; Start 10/14/18 at 10:00 Acetaminophen/ Hydrocodone Bitart ([place] (5/325)) 1 tab Q6H PRN PO .MOD PAIN 4- 6; Start 10/14/18 at 10:00 Morphine Sulfate (morphine) 2 mg Q4H PRN IV .SEVERE PAIN 7-10; Start 10/14/18 at 10:00 Docusate Sodium (Colace) 100 mg Q12H PRN PO .CONSTIPATION; Start 10/14/18 at 10:00 Magnesium Hydroxide (Milk Of Mag) 30 ml DAILY PRN PO .CONSTIPATION; Start 10/14/18 at 10:00 Bisacodyl (Dulcolax Supp) 10 mg DAILY PRN OR .CONSTIPATION; Start 10/14/18 at 10:00 Famotidine (Pepcid Iv) 20 mg BID IV Last administered on 10/14/18at 10:57; Admin Dose 20 MG; Start 10/14/18 at 10:30 Aspirin (Aspirin) 81 mg DAILY PO ; Start 10/16/18 at 09:00 Nitroglycerin (Nitroglycerin (Sl Tab) 0.4 Mg) 1 tab Q5M PRN SL CHEST PAIN; Start 10/14/18 at 10:00 Enoxaparin Sodium (Lovenox) 60 mg Q12 SC Last administered on 10/14/18at 10:57; Admin Dose 60 MG; Start 10/14/18 at 11:00 Hydralazine HCl (Apresoline) 10 mg Q4H PRN IV SBP > 160; Start 10/14/18 at 14:00 Atorvastatin Calcium (Lipitor) 80 mg QHS PO ; Start 10/14/18 at 21:00 Levothyroxine Sodium (Synthroid) 50 mcg QAM PO ; Start 10/15/18 at 09:00 Amiodarone HCl (Cordarone) 200 mg DAILY PO Last administered on 10/14/18at 16:39; Admin Dose 200 MG; Start 10/14/18 at 16:30 Losartan Potassium (Cozaar) 50 mg DAILY PO Last administered on 10/14/18at 16:39; Admin Dose 50 MG; Start 10/14/18 at 16:30 Allergies: Coded Allergies: No Known Allergies (Unverified Allergy, Unknown, 10/14/18) Social History Alcohol Use: none Smoking Status: Never smoker Drug Use: none Exam/Review of Systems Vital Signs Vitals Vital Signs Date Temp Pulse Resp B/P (MAP) Pulse Ox O2 O2 Flow FiO2 Time Delivery Rate 10/14/18 62 16:15 10/14/18 98.0 165/74 100 Room Air 13:00 (104) 10/14/18 14 11:35 10/14/18 2 03:23 Exam Constitutional: alert, oriented Neck: supple Respiratory: clear to auscultation Cardiovascular: regular rate and rhythm Labs Result Diagram: 10/14/18 0321 10/14/18 0321 Results 24hrs Laboratory Tests Test 10/14/18 03:21 10/14/18 05:56 10/14/18 10:46 10/14/18 15:26 White Blood Count 9.3 Red Blood Count 4.58 Hemoglobin 13.4 Hematocrit 41.5 Mean Corpuscular 90.6 Volume Mean Corpuscular 29.3 Hemoglobin Mean Corpuscular 32.3 Hemoglobin Concent Red Cell 11.9 Distribution Width Platelet Count 257 Mean Platelet Volume 9.9 Immature 0.300 Granulocytes % Neutrophils % 83.2 H Lymphocytes % 12.3 L Monocytes % 3.6 Eosinophils % 0.3 Basophils % 0.3 Nucleated Red Blood 0.0 Cells % Immature 0.030 Granulocytes # Neutrophils # 7.7 H Lymphocytes # 1.2 Monocytes # 0.3 Eosinophils # 0.0 Basophils # 0.0 Nucleated Red Blood 0.0 Cells # Prothrombin Time 15.1 H Prothrombin Time 1.2 Ratio INR International 1.18 Normalized Ratio Activated 37.7 H Partial Thromboplast Time Sodium Level 139 Potassium Level 3.8 Chloride Level 101 Carbon Dioxide Level 28 Anion Gap 10 Blood Urea Nitrogen 19 Creatinine 0.73 Est Glomerular > 60 Filtrat Rate mL/min Glucose Level 123 Calcium Level 9.4 Troponin I 0.013 0.147 *H 0.210 *H 0.164 *H Creatine Kinase 101 84 Creatine Kinase 4.9 5.3 Index Creatinine Kinase MB 4.93 H 4.43 H (Mass) Medications Medications Current Medications IV Flush (NS 3 ml) 3 ml PER PROTOCOL IV ; Start 10/14/18 at 10:00 Ondansetron HCl (Zofran Inj) 4 mg Q6H PRN IV NAUSEA/VOMITING; Start 10/14/18 at 10:00 Acetaminophen (Tylenol Tab) 650 mg Q6H PRN PO .PAIN 1-3 OR TEMP; Start 10/14/18 at 10:00 Acetaminophen (Tylenol Supp) 650 mg Q6H PRN OR .PAIN 1-3 OR TEMP; Start 10/14/18 at 10:00 Acetaminophen/ Hydrocodone Bitart ([place] (5/325)) 1 tab Q6H PRN PO .MOD PAIN 4- 6; Start 10/14/18 at 10:00 Morphine Sulfate (morphine) 2 mg Q4H PRN IV .SEVERE PAIN 7-10; Start 10/14/18 at 10:00 Docusate Sodium (Colace) 100 mg Q12H PRN PO .CONSTIPATION; Start 10/14/18 at 10:00 Magnesium Hydroxide (Milk Of Mag) 30 ml DAILY PRN PO .CONSTIPATION; Start 10/14/18 at 10:00 Bisacodyl (Dulcolax Supp) 10 mg DAILY PRN OR .CONSTIPATION; Start 10/14/18 at 10:00 Famotidine (Pepcid Iv) 20 mg BID IV Last administered on 10/14/18at 10:57; Admin Dose 20 MG; Start 10/14/18 at 10:30 Aspirin (Aspirin) 81 mg DAILY PO ; Start 10/16/18 at 09:00 Nitroglycerin (Nitroglycerin (Sl Tab) 0.4 Mg) 1 tab Q5M PRN SL CHEST PAIN; Start 10/14/18 at 10:00 Enoxaparin Sodium (Lovenox) 60 mg Q12 SC Last administered on 10/14/18at 10:57; Admin Dose 60 MG; Start 10/14/18 at 11:00 Hydralazine HCl (Apresoline) 10 mg Q4H PRN IV SBP > 160; Start 10/14/18 at 14:00 Atorvastatin Calcium (Lipitor) 80 mg QHS PO ; Start 10/14/18 at 21:00 Levothyroxine Sodium (Synthroid) 50 mcg QAM PO ; Start 10/15/18 at 09:00 Amiodarone HCl (Cordarone) 200 mg DAILY PO Last administered on 10/14/18at 16:39 ; Admin Dose 200 MG; Start 10/14/18 at 16:30 Losartan Potassium (Cozaar) 50 mg DAILY PO Last administered on 10/14/18at 16:39; Admin Dose 50 MG; Start 10/14/18 at 16:30 JOSE GALVAN MD Oct 14, 2018 18:12
[2018-10-14] MEDS ORDERED: ATORVASTATIN 20 MG TAB PO SCH (21:00)
[2018-10-15] VITALS (9 sets, daily range): BP systolic 124–141; BP diastolic 67–88; PULSE 65–78; RESP 16–19
[2018-10-15] MEDS: FAMOTIDINE 20 MG INJ IV SCH (08:38)
[2018-10-15] MEDS: AMIODARONE 200 MG TAB PO SCH (08:39)
[2018-10-15] MEDS: LOSARTAN 50 MG TAB PO SCH (08:40)
[2018-10-15] MEDS: ENOXAPARIN 60 MG/0.6 ML SYG SC SCH (08:43)
[2018-10-15] MEDS ORDERED: AMIODARONE 200 MG TAB PO SCH (09:00)
[2018-10-15] MEDS ORDERED: LEVOTHYROXINE 50 MCG TAB PO SCH (09:00)
[2018-10-15] MEDS ORDERED: HYDROCHLOROTHIAZIDE 12.5 MG CAP PO SCH (09:00)
[2018-10-15] MEDS ORDERED: LOSARTAN 50 MG TAB PO SCH (09:00)
--- NOTE | 2018-10-15 09:43 | CONS ---
Assessment/Plan Assessment/Plan Assessment/Plan (Daily) Hypertensive emergency - transient severe elevation in BP with neurologic and cardiac symptoms. Slight elevation of cardiac enzymes nonspecific in this setting Echo with normal EF BP better controlled nuclear 1 yr ago showed small fixed defect afib - recent ablation continue anticoagulation and Amiodarone bp now controleld and false + trops due to HTN OOC d/c planning Consultation Date/Type/Reason Admit Date/Time Oct 14, 2018 at 08:54 Initial Consult Date Type of Consult Cardiology Date/Time of Note DATE: 10/15/18 TIME: 09:42 24 HR Interval Summary Free Text/Dictation the aptient much better today Exam/Review of Systems Vital Signs Vitals Vital Signs Date Temp Pulse Resp B/P (MAP) Pulse Ox O2 O2 Flow FiO2 Time Delivery Rate 10/15/18 66 08:00 10/15/18 97.2 17 132/73 97 07:33 (92) 10/14/18 Room Air 16:00 10/14/18 2 03:23 Intake and Output 10/14/18 10/14/18 10/15/18 1515:00 23:00 07:00 IntakeIntake Total 470 ml OutputOutput Total 1 ml BalanceBalance 469 ml Labs Result Diagram: 10/15/18 0518 10/15/18 0518 Results 24hrs Laboratory Tests Test 10/14/18 10:46 10/14/18 15:26 10/15/18 05:18 Creatine Kinase 101 84 Creatine Kinase Index 4.9 5.3 Creatinine Kinase MB (Mass) 4.93 H 4.43 H Troponin I 0.210 *H 0.164 *H White Blood Count 5.7 # Red Blood Count 4.69 Hemoglobin 13.9 Hematocrit 42.1 Mean Corpuscular Volume 89.8 Mean Corpuscular Hemoglobin 29.6 Mean Corpuscular Hemoglobin Concent 33.0 Red Cell Distribution Width 12.5 Platelet Count 279 Mean Platelet Volume 10.1 Immature Granulocytes % 0.200 Neutrophils % 56.5 Lymphocytes % 33.6 Monocytes % 6.5 Eosinophils % 2.8 Basophils % 0.4 Nucleated Red Blood Cells % 0.0 Immature Granulocytes # 0.010 Neutrophils # 3.2 Lymphocytes # 1.9 Monocytes # 0.4 Eosinophils # 0.2 Basophils # 0.0 Nucleated Red Blood Cells # 0.0 Sodium Level 145 H Potassium Level 3.9 Chloride Level 110 Carbon Dioxide Level 25 Anion Gap 10 Blood Urea Nitrogen 18 Creatinine 0.70 Est Glomerular Filtrat Rate mL/min > 60 Glucose Level 96 Hemoglobin A1c 5.1 Calcium Level 9.2 Phosphorus Level 3.5 Magnesium Level 2.2 Total Bilirubin 0.8 Direct Bilirubin 0.00 Indirect Bilirubin 0.8 Aspartate Amino Transf (AST/SGOT) 22 Alanine Aminotransferase (ALT/SGPT) 27 Alkaline Phosphatase 55 Total Protein 7.0 Albumin 4.0 Globulin 3.00 Albumin/Globulin Ratio 1.33 Triglycerides Level 84 Cholesterol Level 138 LDL Cholesterol, Calculated 81 HDL Cholesterol 40 Cholesterol/HDL Ratio 3.4 Thyroid Stimulating Hormone (TSH) 1.310 Free Thyroxine Index 3.84 Thyroxine (T4) 10.8 Triiodothyronine (T3) Uptake 35.6 Medications Medications Current Medications IV Flush (NS 3 ml) 3 ml PER PROTOCOL IV ; Start 10/14/18 at 10:00 Ondansetron HCl (Zofran Inj) 4 mg Q6H PRN IV NAUSEA/VOMITING; Start 10/14/18 at 10:00 Acetaminophen (Tylenol Tab) 650 mg Q6H PRN PO .PAIN 1-3 OR TEMP; Start 10/14/18 at 10:00 Acetaminophen (Tylenol Supp) 650 mg Q6H PRN MO .PAIN 1-3 OR TEMP; Start 10/14/18 at 10:00 Acetaminophen/ Hydrocodone Bitart ([place] (5/325)) 1 tab Q6H PRN PO .MOD PAIN 4- 6; Start 10/14/18 at 10:00 Morphine Sulfate (morphine) 2 mg Q4H PRN IV .SEVERE PAIN 7-10; Start 10/14/18 at 10:00 Docusate Sodium (Colace) 100 mg Q12H PRN PO .CONSTIPATION; Start 10/14/18 at 10:00 Magnesium Hydroxide (Milk Of Mag) 30 ml DAILY PRN PO .CONSTIPATION; Start 10/14/18 at 10:00 Bisacodyl (Dulcolax Supp) 10 mg DAILY PRN MO .CONSTIPATION; Start 10/14/18 at 10:00 Famotidine (Pepcid Iv) 20 mg BID IV Last administered on 10/15/18at 08:38; Admin Dose 20 MG; Start 10/14/18 at 10:30 Aspirin (Aspirin) 81 mg DAILY PO ; Start 10/16/18 at 09:00 Nitroglycerin (Nitroglycerin (Sl Tab) 0.4 Mg) 1 tab Q5M PRN SL CHEST PAIN; Start 10/14/18 at 10:00 Enoxaparin Sodium (Lovenox) 60 mg Q12 SC Last administered on 10/15/18 08:43; Admin Dose 60 MG; Start 10/14/18 at 11:00 Hydralazine HCl (Apresoline) 10 mg Q4H PRN IV SBP > 160 Last administered on 10/14/18 18:28; Admin Dose 10 MG; Start 10/14/18 at 14:00 Atorvastatin Calcium (Lipitor) 80 mg QHS PO Last administered on 10/14/18 20:54; Admin Dose 80 MG; Start 10/14/18 at 21:00 Levothyroxine Sodium (Synthroid) 50 mcg QAM PO Last administered on 10/15/18 08:38; Admin Dose 50 MCG; Start 10/15/18 at 09:00 Amiodarone HCl (Cordarone) 200 mg DAILY PO Last administered on 10/15/18 08:39; Admin Dose 200 MG; Start 10/14/18 at 16:30 Losartan Potassium (Cozaar) 50 mg DAILY PO Last administered on 10/15/18 08:40; Admin Dose 50 MG; Start 10/14/18 at 16:30 ANEUDY RODRIGES MD Oct 15, 2018 09:43
[2018-10-15] MEDS ORDERED: AMIO200T4 PO (12:39)
[2018-10-15] MEDS ORDERED: ATOR20TA38 PO (12:39)
[2018-10-15] MEDS ORDERED: LOSA50TA14 PO (12:39)
[2018-10-15] MEDS ORDERED: ASPI-831 PO (12:39)
--- NOTE | 2018-10-15 12:41 | PDOCDIS ---
Discharge Instructions DIAGNOSIS Discharge Diagnosis 1. Chest pain with elevated troponin. 2. Hypertension. 3. Hyperlipidemia. 4. History of hypothyroidism. 5. History of osteoarthritis CONDITION [id number] Patient Condition: [id number] Stable HOME CARE INSTRUCTIONS: [id number] Diet Instructions: [id number] Low Fat /Cholesterol FOLLOW UP/APPOINTMENTS Follow-up Plan 1. Follow up with Dr. Laron Edwards in one week Office Address [address] [place] [id number] Office ODALIS BELLE NP Oct 15, 2018 12:41
--- NOTE | 2018-10-15 14:07 | DS ---
Date/Time of Note Date/Time of Note DATE: 10/15/18 TIME: 14:06 Discharge Summary Admission/Discharge Info Admit Date/Time Oct 14, 2018 at 08:54 Discharge Date/Time Discharge Diagnosis 1. Chest pain with elevated troponin. 2. Hypertension. 3. Hyperlipidemia. 4. History of hypothyroidism. 5. History of osteoarthritis Patient Condition: Stable Hospital Course This is a 63-year-old female with reported past medical history of atrial fibrillation status post ablation, hyperlipidemia, hypertension, coronary artery disease, who came to the hospital due to reports of elevated blood pressure. Patient reported that last night her blood pressure systolically was in the 190s. She does report compliance with her medication. She then reported progressive pain that started from her chest that went to her left shoulder that was pressure-like in nature. She reported having more fatigue with walking. As such she went to the hospital for further evaluation. She did have initial troponin drawn which was 0.013. It did elevate to 0.147 and then to 0.210. She was provided with Lovenox 1 mg/kg. Chest x-ray done showed no acute cardiopulmonary process. Patient was seen by crowning hammer operator. She also had an echocardiogram that did show to have an EF of 60% with stage I diastolic dysfunction. Patient reportedly had a normal nuclear stress test 1 year ago with a small fixed defect. We did optimize patient's hypertensive medications. After discussion with crowning hammer operator was likely that the patient's elevated troponin was likely secondary to her hypertension. We did optimize her medications and she did improve. During her course of stay she reported resolution of her chest pain. We did optimize her with her antihypertensive medication. She was resumed on amiodarone and anticoagulant for her history of atrial fibrillation. She was resumed on levothyroxine for her thyroid and statin medication for her high cholesterol. The plan of care was discussed with the patient and patient verbalized understanding. On the day of discharge patient was in stable condition Discussed POC with Dr. Loyola Nanjemoy Linda Active Scripts Aspirin (Aspirin) 81 Mg Chew, 81 MG PO DAILY, #30 TAB Prov:ODALIS BELLE NP 10/15/18 Amiodarone Hcl* (Amiodarone Hcl*) 200 Mg Tablet, 200 MG PO DAILY for 30 Days, #30 TAB 2 Refills Prov:ODALIS BELLE NP 10/15/18 Atorvastatin Calcium* (Atorvastatin Calcium*) 20 Mg Tablet, 20 MG PO QHS, #30 TAB Prov:GABY BELLENELL CORRECTIONS SPECIALIST 10/15/18 Losartan Potassium* (Losartan Potassium*) 50 Mg Tablet, 50 MG PO DAILY, #30 TAB Prov:GABY BELLENELL CORRECTIONS SPECIALIST 10/15/18 Reported Medications Levothyroxine Sodium* (Levothyroxine Sodium*) 50 Mcg Tablet, 50 MCG PO QAM 10/14/18 Hydrochlorothiazide* (Hydrochlorothiazide*) 12.5 Mg Tablet, 121.5 MG PO DAILY for 30 Days, #30 10/14/18 Ergocalciferol (Vitamin D2) (VITAMIN D2) 2,000 Unit Tablet, 2000 UNIT PO DAILY, TAB 11/14/17 Alendronate Sodium* (Fosamax*) 70 Mg Tablet, 70 MG PO EVERY WEDNESDAY, #4 TAB 11/14/17 Apixaban* (Eliquis*) 5 Mg Tablet, 5 MG PO BID, TAB 11/14/17 Discontinued Reported Medications Paroxetine Hcl* (Paxil*) 20 Mg Tablet, 20 MG PO DAILY, TAB 11/14/17 Lorazepam* (Lorazepam*) 0.5 Mg Tablet, 0.5 MG PO BID PRN for ANXIETY, TAB 11/14/17 Follow-up Plan 1. Follow up with Dr. Laron Edwards in one week Office Address [address] [place] [id number] Office Primary Care Provider Not On Staff Doctor Time spent on discharge: > 30 minutes Pending Labs Laboratory Tests Test 10/14/18 15:26 10/15/18 05:18 Creatine Kinase 84 IU/L (23-200) Creatine Kinase Index 5.3 Creatinine Kinase MB 4.43 ng/ml (0.0-2.4) (Mass) Troponin I 0.164 ng/ml (0.000-0.120) White Blood Count 5.7 10^3/ul (4.8-10.8) Red Blood Count 4.69 10^6/ul (4.20-5.40) Hemoglobin 13.9 g/dl (12.0-16.0) Hematocrit 42.1 % (37.0-47.0) Mean Corpuscular Volume 89.8 fl (82.0-101.0) Mean Corpuscular 29.6 pg (29.0-33.0) Hemoglobin Mean Corpuscular 33.0 g/dl (32.0-37.0) Hemoglobin Concent Red Cell Distribution 12.5 % (11.5-14.5) Width Platelet Count 279 10^3/UL (140-415) Mean Platelet Volume 10.1 fl (7.4-10.4) Immature Granulocytes % 0.200 % (0.001-0.429) Neutrophils % 56.5 % (39.0-77.0) Lymphocytes % 33.6 % (15.0-51.0) Monocytes % 6.5 % (0.0-11.0) Eosinophils % 2.8 % (0.0-7.0) Basophils % 0.4 % (0.0-2.0) Nucleated Red Blood Cells 0.0 /100WBC (0.0-0.0) % Immature Granulocytes # 0.010 10^3/ul (0.0-0.031) Neutrophils # 3.2 10^3/ul (1.6-7.5) Lymphocytes # 1.9 10^3/ul (0.8-2.9) Monocytes # 0.4 10^3/ul (0.3-0.9) Eosinophils # 0.2 10^3/ul (0.0-0.5) Basophils # 0.0 10^3/ul (0.0-0.1) Nucleated Red Blood Cells 0.0 10^3/ul (0.0-0.0) # Sodium Level 145 mmol/L (135-144) Potassium Level 3.9 mmol/L (3.5-5.1) Chloride Level 110 mmol/L (97-110) Carbon Dioxide Level 25 mmol/L (21-31) Anion Gap 10 (5-13) Blood Urea Nitrogen 18 mg/dl (7-20) Creatinine 0.70 mg/dl (0.44-1.00) Est Glomerular Filtrat > 60 mL/min (>60) Rate mL/min Glucose Level 96 mg/dl (70-220) Hemoglobin A1c 5.1 % (0-5.9) Calcium Level 9.2 mg/dl (8.4-10.2) Phosphorus Level 3.5 mg/dl (2.5-4.9) Magnesium Level 2.2 mg/dl (1.7-2.5) Total Bilirubin 0.8 mg/dl (0.2-1.3) Direct Bilirubin 0.00 mg/dl (0.00-0.20) Indirect Bilirubin 0.8 mg/dl (0-1.1) Aspartate Amino 22 IU/L (15-46) Transf (AST/SGOT) Alanine 27 IU/L (13-69) Aminotransferase (ALT/SGPT ) Alkaline Phosphatase 55 IU/L (42-121) Total Protein 7.0 g/dl (6.1-8.1) Albumin 4.0 g/dl (3.3-4.9) Globulin 3.00 g/dl (1.3-3.2) Albumin/Globulin Ratio 1.33 Triglycerides Level 84 mg/dl (0-149) Cholesterol Level 138 mg/dl (100-200) LDL Cholesterol, 81 mg/dl Calculated HDL Cholesterol 40 mg/dl (35-98) Cholesterol/HDL Ratio 3.4 RATIO Thyroid Stimulating 1.310 MIU/L (0.465-4.680) Hormone (TSH) Free Thyroxine Index 3.84 ug/ml (0.65-3.89) Thyroxine (T4) 10.8 ug/dl (5.5-11.0) Triiodothyronine (T3) 35.6 % (23.5-40.5) Uptake ODALIS BELLE NP Oct 15, 2018 14:07
[2018-10-16] MEDS ORDERED: ASPIRIN 81 MG TAB PO SCH (09:00)
== END 2018-10-15 16:33 | disposition home or self-care (01) | DRG 313 ==
LOC: E/R 01:38 → 6WM 08:54
PROVIDERS: ADMIT Internal Medicine; ATTEND Internal Medicine
DX: R07.9 Chest pain, unspecified (principal); I10 Essential (primary) hypertension; E78.5 Hyperlipidemia, unspecified; E03.9 Hypothyroidism, unspecified; I48.91 Unspecified atrial fibrillation; I25.10 Atherosclerotic heart disease of native coronary artery without angina pectoris; Z79.82 Long term (current) use of aspirin
CPT/HCPCS: 36415; 71045; 80048; 80053; 80061; 82550; 82553; 83036; 83735; 84100; 84436; 84443; 84479; 84484; 85025; 85610; 85730; 93005; 93306; J0360